=== PATIENT | female | born 1990 | race Caucasian/White ===

== ENCOUNTER 2024-01-24 14:15 | Emergency (ER) | payer OTHER ==
--- NOTE | 2024-01-24 16:35 | XRAY Report ---
PROCEDURE: Hip w/Pelvis 2-3V RT INDICATIONS: fall from horse, pain TECHNIQUE: AP view of the pelvis as well as a frog leg view of the right hip were acquired. COMPARISON: Correlation is made with the accompanying imaging. FINDINGS: Bones: No fractures or dislocations. No suspicious bony lesions. Soft tissues: No suspicious soft tissue calcifications or masses. IMPRESSION: No acute bony abnormality can be seen on these plain films. Please correlate with focal tenderness. If there is point tenderness (or other clinical concern for a fracture not seen on these plain films) then please consider a dedicated CT study or a short term fo llow up plain film series for further evaluation. Reviewed by: Brandt Lovelace MD on 01/24/2024 3:34 PM [facility] Approved by: Brandt Lovelace MD on 01/24/2024 3:34 PM [facility] Station ID: [id number]
--- NOTE | 2024-01-24 16:36 | XRAY Report ---
PROCEDURE: Ribs w/PA Chest 3+V RT INDICATIONS: fall from horse, pain TECHNIQUE: 2 views of the ribs were acquired, along with a single view chest. COMPARISON: Correlation is made with the accompanying imaging. FINDINGS: Surgical changes and devices: Cholecystectomy clips are seen. Bones and chest wall: A marker is placed upon the area of pain. At this site, no fractures are seen. No fractures or dislocations are seen elsewhere. No suspicious bony lesions. The overlying soft t issues appear unremarkable. Lungs and pleura: No pleural effusions or pneumothorax. Lungs appear clear. Mediastinum: Mediastinal contours appear normal. Heart size is normal. IMPRESSION: No displaced rib fracture or definite pneumothorax can be seen on these plain films. Reviewed by: Brandt Lovelace MD on 01/24/2024 3:35 PM [facility] Approved by: Brandt Lovelace MD on 01/24/2024 3:35 PM [facility] Station ID: [id number]
--- NOTE | 2024-01-24 16:38 | ED Physician Documentation ---
History of Present Illness - Stated complaint Stated Complaint: RIB/HIP PX FROM INJ - Chief complaint Chief Complaint: Trauma Ch/Bk - History obtained from History obtained from: Patient - History of Present Illness Timing: Today Pain level max: 5 Pain level now: 5 - Additonal information Additional information: 33-year-old female was riding her horse today when she fell off the horse landing on the hard ground. She was wearing a helmet. No loss of consciousness. No vomiting. No neck or back pain. Complains of pain to the right ribs and the right hip. She was ambulatory into the emergency department. Denies any possibility of . No abdominal pain, vomiting. No seizure activity. Worse with movement, better with rest. No deformity. Has not taken anything for pain. Review of Systems Constitutional: denies: Fever, Chills GI: denies: Vomiting, Diarrhea Skin: denies: Rash Musculoskeletal: denies: Neck pain, Back pain PD PAST MEDICAL HISTORY - Past Medical History Past Medical History: No - Past Surgical History Past Surgical History: Yes - Allergies Allergies/Adverse Reactions: Allergies Allergy/AdvReac Type Severity Reaction Status Date / Time No Known Drug Allergies Allergy Verified 01/24/24 14:45 - Social History Does the pt smoke?: No Smoking Status: Never smoker Does the pt drink ETOH?: No Does the pt have substance abuse?: No - Immunizations Immunizations are current?: Yes PD ED PE NORMAL - Vitals Vital signs reviewed: Yes - General General: Alert and oriented X 3, No acute distress - HEENT HEENT: Atraumatic, PERRL, EOMI, Ears normal, Moist mucous membranes, Pharynx benign - Neck Neck: Supple, no meningeal sign, No bony TTP - Cardiac Cardiac: RRR, Strong equal pulses - Respiratory Respiratory: No respiratory distress, Clear bilaterally - Abdomen Abdomen: Soft, Non tender, Non distended - Back Back: No spinal TTP - Derm Derm: Warm and dry - Extremities Extremities: Normal ROM s pain - Neuro Neuro: Alert and oriented X 3, 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 Also tenderness over the right hip. Limited range of motion secondary to pain. No crepitus over the ribs, no ecchymosis. Otherwise normal examination of the extremities Results - Vitals Vitals: Vital Signs - 24 hr 01/24/24 01/24/24 14:42 16:42 Temperature 36.7 C Heart Rate 119 H 89 Respiratory 16 18 Rate Blood Pressure 130/80 104/65 O2 Saturation 99 100 - Rads (name of study) Right hip x-ray Relevant Findings:: Final report received, See rad report Right ribs with chest x-ray Relevant Findings:: Final report received, See rad report PD Medical Decision Making - ED course Complexity details: reviewed results, re-evaluated patient, considered differential, d/w patient ED course: 33-year-old female status post a fall off of a horse today. No acute findings on rib x-ray or right hip x-ray. Declines any pain medication here or for home. No evidence of concussion. No indication for head CT. GCS 15. Head injury in structions given at bedside. No neck or back pain. No focal neurological deficits. Ambulating without difficulty. Patient counseled regarding signs and symptoms for which I believe and urgent re-evaluation would be necessary. Patient with good understanding of and agreement to plan and is comfortable going home at this time This document was made in part using voice recognition software. While efforts are made to proofread this document, sound alike and grammatical errors may occur. Departure - Departure Disposition: 01 Home, Self Care Clinical Impression: Contusion of chest wall Qualifiers: Encounter type: initial encounter Laterality: right Qualified Code(s): S20.211A - Contusion of right front wall of thorax, initial encounter Contusion, hip Qualifiers: Encounter type: initial encounter Laterality: right Qualified Code(s): S70.01XA - Contusion of right hip, initial encounter Condition: Good Instructions: ED Contusion Chest Wall, ED Contusion Hip Follow-Up: your,doctor as needed [Other] Comments: Your x-rays did not show any acute abnormalities today. Please follow-up with your doctor as needed for further care. You can use Motrin, Tylenol or Aleve as needed for pain. You may develop bruising over the next several days. You will likely be more sore tomorrow than you are today. Please also return for worsening headaches, vomiting or any other new or worrisome symptoms. Forms: PCP List Discharge Date/Time: 01/24/24 16:42
[2024-01-24 16:47] VITALS: BP 104/65; O2SAT 100
== END 2024-01-24 16:42 | disposition home or self-care (01) ==
LOC: ED 14:15
DX: S20.211A Contusion of right front wall of thorax, initial encounter (principal); S70.01XA Contusion of right hip, initial encounter; V80.010A Animal-rider injured by fall from or being thrown from horse in noncollision accident, initial encounter; Y93.52 Activity, horseback riding
CPT/HCPCS: 99283; 99284